=== PATIENT | male | born 1995 | race Caucasian/White ===

== ENCOUNTER → 2017-06-16 | Outpatient (CLI) | payer OTHER ==
--- NOTE | 2017-06-17 15:27 | EKG ---
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1995 Requested By: Physician staff Order Number: [id number] Wai MD: Sadiq Barney Measurements Intervals [place] Rate: 51 P: 6 NC: 147 QRS: 73 QRSD: 106 T: 44 QT: 430 QTc: 397 Interpretive Statements Sinus rhythm RSR' in V1 or V2, probably normal variant Probable left ventricular hypertrophy ST elev, probable normal early repol pattern No previous ECG available for comparison Electronically Signed On 06-17-2017 15:27:42 [employer]ING [employer] INST[employer]ER by Sadiq Barney [email or web address] <ELECTRONICALLY SIGNED> By: Sadiq Barney MD, [facility] 06/17/17 1527 1540 154 Sadiq Barney MD, FACC /EPI
== END ==
LOC: M.CRD 15:25
DX: R00.0 Tachycardia, unspecified (principal)